=== PATIENT | female | born 1990 | race Hispanic/Latino ===

== ENCOUNTER → 2017-03-08 | Outpatient (REF) | payer BC ==
[~2017-03-08] MED LIST: ACET50TA PO; IBUP-1114 PO; PRENTAB9 PO
== END ==
LOC: M LAB REF 13:01
PROVIDERS: ATTEND Advanced Practice Midwife
DX: Z36 Encounter for antenatal screening of mother (principal); Z3A.00 Weeks of gestation of pregnancy not specified

== ENCOUNTER → 2017-03-14 | Outpatient (REF) | payer BC | LOC: M LAB REF 19:29 | PROVIDERS: ATTEND Specialist | DX: Z34.83 Encounter for supervision of other normal pregnancy, third trimester (principal); Z3A.00 Weeks of gestation of pregnancy not specified ==

== ENCOUNTER 2017-03-25 12:57 | Inpatient (IN) | payer BC, OTHER ==
[2017-03-25] VITALS (7 sets, daily range): BP systolic 128–160; BP diastolic 62–79
[~2017-03-25] VITALS: Ht 160 cm; Wt 90.0 kg
[2017-03-25] MEDS ORDERED: OXYTOCIN 30 UNITS IN 0.9% NaCl 500ML IV BAG (J2590) As Ordered ONE (13:19)
[2017-03-25] MEDS ORDERED: PRENTAB9 PO (13:25)
[2017-03-25] MEDS ORDERED: DOCUSATE SODIUM 100 MG CAP PO PRN (14:00)
[2017-03-25] MEDS ORDERED: ONDANSETRON 4MG/2ML VIAL (J2405) IV PRN (14:00)
[2017-03-25] MEDS ORDERED: OXYTOCIN DRIP 30 UNITS in APPROPRIATE DILUENT 1 EA IV SCH (14:00)
[2017-03-25] MEDS ORDERED: LIDOCAINE 1% MDV INJ 50 ML VIAL INFIL ONE (14:00)
[2017-03-25] MEDS ORDERED: DIBUCAINE 1% OINTMENT 30GM TOP PRN (14:00)
[2017-03-25] MEDS ORDERED: PROMETHAZINE 25 MG TAB PO PRN (14:00)
[2017-03-25 14:19] LABS: MEAN CORPUSCULAR HEMOGLOBIN 30.6 pg (27.0-33.0); MEAN CORPUSCULAR VOLUME 87.5 fl (80.0-96.0); WHITE BLOOD COUNT 20.9 K/mm3 (4.0-10.0)
[2017-03-25] MEDS: IBUPROFEN 800 MG TAB PO PRN ×2 (16:02→23:54)
[2017-03-25] MEDS: PRENATAL VITAMINS CHEWABLE TABLET PO SCH (21:52)
[2017-03-25] MEDS: LR 1,000 ML IV SCH ×2 (21:54→21:56)
[2017-03-26] MEDS: LR 1,000 ML IV SCH (06:00)
[2017-03-26 06:08] VITALS: BP 93/56
[2017-03-26 06:28] VITALS: BP 138/84
[2017-03-26] MEDS: ACETAMINOPHEN 500 MG TAB PO PRN ×2 (06:33→17:06)
[2017-03-26] MEDS: PRENATAL VITAMINS CHEWABLE TABLET PO SCH (08:27)
[2017-03-26] MEDS ORDERED: INFLUENZA QUADRIVALENT PF VACCINE 0.5ML SYRINGE (90686) IM ONE (09:00)
[2017-03-26] MEDS: IBUPROFEN 800 MG TAB PO PRN (15:05)
[2017-03-26 18:00] VITALS: BP 133/61
[2017-03-27] MEDS: IBUPROFEN 800 MG TAB PO PRN (03:51)
[2017-03-27 06:09] VITALS: BP 133/68
[2017-03-27] MEDS ORDERED: IBUP-1114 PO (08:43)
[2017-03-27] MEDS ORDERED: ACET50TA PO (08:43)
[2017-03-27] MEDS ORDERED: ADACEL/BOOSTRIX VACCINE (DIPHTH/PERTUSS/ACELL/TETANUS)0.5ML SYR (90715) IM ONE (09:00)
[2017-03-27] MEDS: PRENATAL VITAMINS CHEWABLE TABLET PO SCH (09:50)
== END 2017-03-27 12:00 | disposition home or self-care (01) | DRG 560 ==
LOC: M LDI 12:57 → M OBS 16:35
PROVIDERS: ADMIT Obstetrics & Gynecology; ATTEND Obstetrics & Gynecology
PROC: 0HQ9XZZ Repair Perineum Skin, External Approach (ICD-10-PCS; principal; 2017-03-25)
DX: O70.0 First degree perineal laceration during delivery (principal)